=== PATIENT | male | born 1970 | race Caucasian/White ===

== ENCOUNTER 2024-01-21 14:54 | Emergency (ER) | payer BC, SELFPAY ==
[2024-01-21 15:07] VITALS: BP 103/79
[2024-01-21 15:29] LABS: % Basophils 0.2 % (0-2); % Eosinophils 0.4 % (0-6); % Immature Granulocytes 0.6 % (0-0.5); % Lymphocytes 16.2 % (20.5-51.1); % Monocytes 10.8 % (1.7-9.3); % Neutrophils 71.8 % (42.2-75.2); Absolute Lymphocytes 0.8 10^3/uL (1.2-3.4); Absolute Monocytes 0.5 10^3/uL (0.1-0.6); Absolute Neutrophils 3.3 10^3/uL (1.4-6.5); Hemoglobin 15.1 g/dL (13.0-18.0); Mean Corp Hgb Conc. 35.1 g/dL (33.0-37.0); Mean Corpuscular Hgb 29.3 pg (27.0-31.0); Mean Corpuscular Volume 83.3 fL (80.0-94.0); Mean Platelet Volume 9.3 fL (7.4-10.4); Nucleated Red Blood Cells % 0 % (-); Platelet Count 290 10^3/uL (130-400); Red Blood Cell Count 5.16 10^6/uL (4.70-6.10); Red Cell Dist. Width 12.9 % (11.5-14.5); White Blood Cell Count 4.6 10^3/uL (4.8-10.8)
[2024-01-21 15:45] LABS: ALT (SGPT) 47 U/L (0-50); AST (SGOT) 49 U/L (17-59); Albumin 4.8 g/dl (3.5-5.0); Alkaline Phosphatase 57 U/L (38-126); Blood Urea Nitrogen 14 mg/dl (9-20); Calcium 9.7 mg/dl (8.4-10.2); Carbon Dioxide 28 mmol/L (22-30); Chloride 95 mmol/L (98-107); Glucose 126 mg/dl (70-99); Sodium 136 mmol/L (135-145); Total Bilirubin 0.7 mg/dl (0.2-1.3); Total Protein 8.1 g/dl (6.3-8.2); eGFR > 60.00
[2024-01-21 16:12] LABS: Lipase 28 U/L (23-300)
--- NOTE | 2024-01-21 18:22 | ED.GENMED ---
History of Present Illness
General
Chief Complaint: Abdominal Symptoms
Source: patient
Exam Limitations: none
Time Seen by Provider: 01/21/24 18:02
Travel History
Have you had any contact with someone who has COVID-19?: No
Do you have any symptoms of coronavirus? Fever > 100 degrees, chills, cough, shortness of breath, sore throat, loss of taste or smell, muscle aches, or headache?: No
History of Present Illness
History of Present Illness:
This is a 53 year old male that comes in with c/o diarrhea. States that they were in the [place] and 2 days into the trip he started with diarrhea. States that they got home yesterday and the diarrhea has continued. States that it is
worse. States that he also vomited twice yesterday and is having diarrhea every hour. States that he has also not urinated in the past 2 days. States that he was also having palpitations. State that he is nauseated and has a slight headache. Denies
any fever, chills, chest pain, SOB, dizziness, urinary burning.
Past History
Past History
ED Past Medical History: GERD, Hypercholesterolemia and Other (Sleep apnea, )
ED Past Surgical History: Other (Septoplasty)
Social History
Tobacco: Former smoker
Alcohol: None
Personal:
Living: with family
Employment: Employed (Physician)
Family History
Family History: Negative Early CAD or CAD
Review of Systems
Review of Systems
All Other Systems: ROS reviewed and negative except as documented in HPI and ROS
Constitutional: Reports no symptoms; Denies fever or chills
EENT: Reports no symptoms
Respiratory: Denies cough or trouble breathing
Cardiac: Reports no symptoms; Denies chest pain
ABD/GI: Reports abdominal pain, nausea, vomiting and diarrhea
: Reports other (Decreased urine output); Denies dysuria, frequency or urgency
Musculoskeletal: Reports no symptoms
Skin: Reports no symptoms
Neurological: Reports headache (Slight); Denies dizzy
Psychiatric: Reports no symptoms
Phy Exam
General Physical Exam
General Presentation: no apparent distress
General age: appears stated age
General Skin: warm and dry
General Habitus: normal
General Mental: alert
General Hydration: appears well hydrated
ENT Exam
ENT Exam: TM's normal, pharynx normal and neck supple
Eye Exam
Eye Exam: EOMI
Cardiovascular Exam
Cardiovascular Exam: regular rate/rhythm, no edema, no murmur and normal peripheral pulses
Pulmonary Exam
Pulmonary Exam: lungs clear, no respiratory distress, no rales, chest non tender, no crackles, no rhonchi, no wheezing and no cough
Gastrointestinal Exam
Gastrointestinal Exam: normal bowel sounds, non tender, soft, no organomegaly, no pulsatile mass and non distended
Musculoskeletal Exam
Musculoskeletal Exam: full ROM and no edema
Skin Exam
Skin Exam: normal color, warm/dry, no rash and no petechia
Psychiatric Exam
Psychiatric Exam: normal mood/affect
Course
Orders/Labs/Results
Orders:
Orders
01/21/24 15:18
Complete Blood Count/With Diff Urgent
Comprehensive Metabolic Panel Urgent
Lipase Urgent
01/21/24 18:21
CT Abd/pel W Iv And Oral Contr Urgent
Comment:
Reason For Exam: Fever, abd pain, diarrhea
0.9% Sodium Chloride 1000 ml [Nss] 1,000 ml IV BOLUS
Iohexol [Omnipaque] See Protocol PO NOW STA
01/21/24 18:22
Acetaminophen [Tylenol] 1,000 mg PO NOW STA
01/21/24 18:25
Ondansetron Injectable [Zofran] 4 mg IV NOW STA
01/21/24 18:30
Electrocardiogram (*1) Urgent
Reason for Study: Palpitations
EKG- Treatment ONCE
01/21/24 18:33
Pantoprazole [Protonix IV] 40 mg .ROUTE .STK-MED ONE
01/21/24 18:40
Pantoprazole [Protonix IV] 40 mg IV NOW STA
01/21/24 18:44
Urinalysis Reflex To Culture Urgent
Date Specimen was Collected: 01/21/24
Time Specimen was Collected: 15:11
Urine Microscopic Reflex Cult Urgent
Norovirus by PCR Urgent
RAFI Source: ST
Specimen Description:
Date Specimen was Collected: 01/21/24
Time Specimen was Collected: 18:37
STOOL [C difficile Antigen & Toxins] Urgent
RAFI Source: Feces/Stool
Specimen Description:
Date Specimen was Collected: 01/21/24
Time Specimen was Collected: 18:37
Stool Culture Urgent
RAFI Source: Feces/Stool
Specimen Description:
Date Specimen was Collected: 01/21/24
Time Specimen was Collected: 18:37
Stool For WBC Urgent
RAFI Source: Feces/Stool
Specimen Description:
Date Specimen was Collected: 01/21/24
Time Specimen was Collected: 18:37
01/21/24 19:01
Add On - Microbiology Urgent
Tests Added?: norovirus PCR
Abnormal Lab Results
01/21/24 01/21/24
15:18 18:44
WBC 4.6 L 10^3/uL
(4.8-10.8)
Absolute Lymphs (auto) 0.8 L 10^3/uL
(1.2-3.4)
Immature Gran % 0.6 H %
(0-0.5)
Lymphocytes % 16.2 L %
(20.5-51.1)
Monocytes % 10.8 H %
(1.7-9.3)
Chloride 95 L mmol/L
(98-107)
Glucose 126 H mg/dl
(70-99)
Urine Ketones 1+ A
(Negative)
Urine Bilirubin 1+ A
(Negative)
Leukocyte Esterase Rfl Trace A
(Negative)
01/21/24 15:18
01/21/24 15:18
WBC very slightyl low. Chloride low. Glucose nonfasting. Lipase normal at 28
Stool negative for WBC's and Negative for C-diff, Urine negative for infection.
Vital Signs
Initial and Last Documented VS:
Initial Vital Signs
Temp Pulse Resp BP Pulse Ox
98.2 F 100 18 103/79 98
01/21/24 15:07 01/21/24 15:07 01/21/24 15:07 01/21/24 15:07 01/21/24 15:07
Last Documented Vital Signs
Temp Pulse Resp BP Pulse Ox
100.3 F 95 18 100/79 98
01/21/24 18:38 01/21/24 19:02 01/21/24 19:02 01/21/24 19:02 01/21/24 19:02
MDM/Problems Addressed
Differential Diagnosis Includes:
Travelers diarrhea, Colitis,
MDM/Problems Addressed:
This is a 53 year old male that comes in with c/o diarrhea, vomiting and abd pain. States that [place] and he started with diarrhea. This continued since they have been home and is getting worse. States that he now is vomiting and can't
keep anything down.
Will get labs. IV fluids, Medicate for fever and get CT scan
Back into see patient. Reviewed labs and CT findings. Explained that the stool is negative fror WBC's and Negative for C-diff. CT shows enteritis. This is a viral syndrome and will clear up on its own. If any of the other stool culture come back
positive he would be called. Patient to increase his water intake to 8-8oz glasses daily. Follow up with the family doctor. Return with any concerns.
Chronic conditions affecting care:
NA
Acute Exacerbation and/or Progression of Chronic Illness:
NA
*Radiology
Radiology exam reviewed: radiology read reviewed (Cholelithiasis. All of oral constrast administered seen within stomach and proximal mid small bowel. Borderline dilated with unopacified normal caliber small bowel, no discrete clear focal
transition, slow tapering. Large bowel not opacified with oral contrast, filled with liquid stool such as ) and all reviewed NAD by ED Provider (CT cont- diarrheal state. Overall findings could represent enteritis. NO focal right lower quadrant
inflammatory changes. Few small right lower quadrant mesenteric lymph nodes, nonspecific. Cannot exclude mesenteric adenitis. Small fat only containing umbilical hernia. )
*Pulse Oximetry
Patient hypoxic: no
*EKG
Interpreted by ED Provider?: Yes
Heart Rate: 103
Rate: tachycardiac
Rhythm: sinus
[place]: left axis deviation
Interval: normal interval
QRS Pattern: normal QRS
Ischemia: no ischemia
*[place] Interpretation
Rate: [place]- N/A
*Critical Care Note
Total Time (30-74mins, 75-104mins- exclusive of procedures): Not Applicable
ED Attending Note
-
Portions of this chart may have been created with voice recognition software.� Occasional wrong word or��sound alike� substitutions may have occurred due to the inherent limitations of voice recognition software.
Discharge Plan
Departure
Patient Disposition: Home (Routine Discharge)
Date of Disposition: 01/21/24
Time of Disposition: 21:49
Patient with high blood pressure during this ER visit?: No
Covid-19: Not Applicable
Discharge Problem:
Nausea & vomiting, Diarrhea, Enteritis
Instructions: Diarrhea in adolescents and adults, Clear Liquid Diet, Nausea and Vomiting, Adult (DC), Abdominal Pain
Prescriptions:
New
ondansetron 4 mg tablet,disintegrating
4 mg PO Q8H PRN (Reason: nausea and vomiting) Qty: 15 0RF
Rx Instructions:
May take 2 tabs if needed
No Action
simvastatin 20 MG tablet
20 mg PO QPM
Referrals:
NONE,* [Family Provider] -
Activity Restrictions/Additional Instructions:
As discussed, your blood work shows very slight decrease in the WBC's. Your urine is negative for infection and your Stool is negative for C-diff or WBC's. IF any part of the stool would come back positive you will be called. Please increase your
water intake to 8-8oz glasses daily. Stay on a clear liquid diet for the next 24 hours and then advance your diet as tolerated. Please stay away form milk and milk products until the diarrhea stops. Follow up with the family doctor for recheck. Just
to make you aware, you do have gallstones and small fat filled only umbilical hernia. A prescription for Zofran has been sent to your Pharmacy. IF YOU HAVE VOMITING THAT IS NOT CONTROLLED OR YOU HAVE ANY OTHER CONCERNS PLEASE RETURN TO THE
EMERGENCY ROOM.
Interventions
Interventions:
*Risk Screen - Suicide Last Done: 01/21/24 18:23
*Neglect/Abuse Screening Last Done: 01/21/24 18:23
ED- Fall Risk Assessment Last Done: 01/21/24 18:54
*ED COVID-19 Vaccine History Last Done: 01/21/24 15:07
FR-Kjcawm-Dphnocfnuf Assessment Last Done: 01/21/24 18:54
[2024-01-21 18:36] VITALS: BMI 29.0
[2024-01-21] MEDS: PROTONIX IV 40 MG IV (18:40)
[2024-01-21] MEDS: OMNIPAQUE 50 ML PO (18:41)
[2024-01-21] MEDS: TYLENOL 1000 MG PO (18:41)
[2024-01-21] MEDS: NSS 1000 IV (18:41)
[2024-01-21] MEDS: ZOFRAN 4 MG IV (18:41)
[2024-01-21 19:01] LABS: Urine Albumin Trace (Neg - Trace); Urine Bilirubin 1+ (Negative); Urine Character Clear (Clear); Urine Color Amber; Urine Glucose Negative (Negative); Urine Ketone 1+ (Negative); Urine Leukocyte Trace (Negative); Urine Nitrite Negative (Negative); Urine Occult Blood Negative (Negative); Urine Urobilinogen 1+ (Neg - 1+)
[2024-01-21 19:02] VITALS: BP 100/79
[2024-01-21 19:32] LABS: Urine Mucus Many
[2024-01-21 19:33] LABS: Urine White Cell 0-2 /HPF (0-5)
== END 2024-01-21 22:26 | disposition home or self-care (01) ==
LOC: EMR 14:54
PROVIDERS: Emergency Medicine; EMERGENCY PHYSICIAN Emergency Medicine
DX: R11.2 Nausea with vomiting, unspecified (principal); K52.9 Noninfective gastroenteritis and colitis, unspecified; Z87.891 Personal history of nicotine dependence
CPT/HCPCS: 99285; 96374; 96375; 96361; 74177; 80053; 81003; 81015; 83690; 85025; 87045; 87046; 87324; 87427; 87449; 87798; 89055; 93005; Q9967